=== PATIENT | male | born 1965 | race Caucasian/White ===

== ENCOUNTER 2018-05-17 13:21 | Day surgery (SDC) | payer OTHER ==
[2018-05-17] MEDS ORDERED: MIDAZOLAM 1 MG/ML 2 ML INJ (15:33)
[2018-05-17] MEDS ORDERED: PROPOFOL 20 ML (15:33)
== END 2018-05-17 17:05 | disposition home or self-care (01) ==
LOC: GIL 13:21
DX: Z83.71 Family history of colonic polyps (principal); K64.9 Unspecified hemorrhoids; K57.90 Diverticulosis of intestine, part unspecified, without perforation or abscess without bleeding
CPT/HCPCS: 45378